=== PATIENT | female | born 1980 ===

== ENCOUNTER 2019-02-28 09:25 | Outpatient (CLI) | payer OTHER ==
--- NOTE | 2019-02-28 12:51 | Mammography Report ---
BILATERAL DIGITAL DIAGNOSTIC MAMMOGRAM WITH CAD -- 02/28/2019 LEFT LIMITED BREAST ULTRASOUND INDICATION: 2 palpable lumps of the left breast. TECHNIQUE: Digital bilateral mammographic imaging was performed. Spot compression views were obtaine d. Limited ultrasound was performed. This examination was interpreted with the benefit of Computer- ded Detection (CAD) analysis. COMPARISON: None. FINDINGS: Breast Density: The breasts are heterogeneously dense, which may obscure small masses. MAMMOGRAPHIC FINDINGS: A left inner asymmetry persists on spot compression. No architectural distorti on or suspicious calcifications of the left breast. There is no evidence of dominant mass, suspicious calcifications or architectural distortion in the right breast. ULTRASOUND FINDINGS: Targeted ultrasound evaluation was performed of the area of interest. Ultrasou nd of the left breast demonstrated a solid palpable heterogeneous hypoechoic mass at 10:00 5 cm from the nipple. It has a lobular shape and measures 1.9 x 1.0 x 1.9 cm. Ultrasound of the left breast dem onstrated a palpable solid heterogeneous hypoechoic mass at 2:00 7 cm from the nipple measuring 2.4 x 1.2 x 1.7 cm. It has an irregular shape. IMPRESSION: 2 solid left breast masses. Recommend ultrasound-guided needle core biopsy of the left br east at 2:00 and 10:00 to exclude malignancy. I discussed the findings and the recommendation for 2 ultrasound-guided needle biopsies of the left b reast with the patient at the time of the exam. Follow up recommendation: Biopsy BI-RADS Category 4: Suspicious for Malignancy. A "normal" or negative report should not discourage follow up or biopsy of a clinically significant f inding. A written summary of these findings will be mailed to the patient. The patient will be entered into a mammography reporting system which will generate a reminder letter for the patient's next appointmen t at the appropriate interval. According to the [employer], yearly mammograms are recommended starting at age 40 and continuing as long as a woman is in good health. Breast MRI is recommended for women with an alfreda roximately 20-25% or greater lifetime risk of breast cancer, including women with a strong family his tory of breast or ovarian cancer and women who have been treated for Hodgkin's disease. Signer Name: Remi Gutierrez MD Signed: 02/28/2019 12:47 PM Workstation Name: [id number]
== END 2019-02-28 09:26 | disposition home or self-care (01) ==
LOC: SPVWC 09:25
PROVIDERS: ATTEND Obstetrics & Gynecology
DX: N63.22 Unspecified lump in the left breast, upper inner quadrant (principal)
CPT/HCPCS: 77066

== ENCOUNTER 2019-03-21 10:02 | Outpatient (CLI) | payer OTHER ==
--- NOTE | 2019-03-21 11:29 | Mammography Report ---
LEFT DIGITAL DIAGNOSTIC MAMMOGRAM CLINICAL: For clip placement after ultrasound-guided needle biopsy 2 sites. COMPARISON: 02/28/2019 FINDINGS: Biopsy clips are now identified in the upper inner quadrant and the upper outer quadrant. IMPRESSION: Concordant clip deployment at 2 sites. Signer Name: Remi Gutierrez MD Signed: 03/21/2019 11:25 AM Workstation Name: [id number]
--- NOTE | 2019-03-21 13:12 | Ultrasound Report ---
ULTRASOUND-GUIDED NEEDLE CORE BIOPSY 2 SITES LEFT BREAST WITH CLIP PLACEMENT CLINICAL: Left breast masses at 2:00 and 10:00. COMPARISON: 02/28/2019 FINDINGS: The procedure was explained to the patient and informed consent was obtained. Ultrasound demonstrated the previously identified the previously described irregular solid heterogene ous hypoechoic masses.. I marked the breast with a felt tip marker and a timeout was called. The skin was prepped with Chloro -Prep and anesthetized with 1% lidocaine. Needle core biopsy was performed at 10:00 through a small dermatotomy using ultrasound guidance, 1% l idocaine for superficial anesthesia, 2% lidocaine with epinephrine for deep anesthesia and a 14-gauge Achieve biopsy device. 3 cores were obtained and placed in formalin. A clip was deployed within the mass. Needle core biopsy was performed at 2:00 through a small dermatotomy using ultrasound guidance, 1% li docaine for superficial anesthesia, 2% lidocaine with epinephrine for deep anesthesia and a 14-gauge achieve biopsy device. 4 cores were obtained and placed in formalin a clip was deployed within the ma ss. The patient tolerated the procedure well and there were no apparent complications. Hemostasis was ach ieved with minimal effort at both sites and sterile dressings were applied. A post procedure mammogram demonstrated concordant clip deployment at both sites. She left the [facility], operated by [facility] in good condition and was given instructions for wound care and follow-up. IMPRESSION: Uncomplicated ultrasound guided needle core biopsy with clip placement 2 sites left breas t. Signer Name: Remi Gutierrez MD Signed: 03/21/2019 1:08 PM Workstation Name: [id number]
--- NOTE | 2019-03-21 14:42 | Ultrasound Report ---
ULTRASOUND-GUIDED NEEDLE CORE BIOPSY 2 SITES LEFT BREAST WITH CLIP PLACEMENT CLINICAL: Left breast masses at 2:00 and 10:00. COMPARISON: 02/28/2019 FINDINGS: The procedure was explained to the patient and informed consent was obtained. Ultrasound demonstrated the previously identified the previously described irregular solid heterogene ous hypoechoic masses.. I marked the breast with a felt tip marker and a timeout was called. The skin was prepped with Chloro -Prep and anesthetized with 1% lidocaine. Needle core biopsy was performed at 10:00 through a small dermatotomy using ultrasound guidance, 1% l idocaine for superficial anesthesia, 2% lidocaine with epinephrine for deep anesthesia and a 14-gauge Achieve biopsy device. 3 cores were obtained and placed in formalin. A clip was deployed within the mass. Needle core biopsy was performed at 2:00 through a small dermatotomy using ultrasound guidance, 1% li docaine for superficial anesthesia, 2% lidocaine with epinephrine for deep anesthesia and a 14-gauge achieve biopsy device. 4 cores were obtained and placed in formalin a clip was deployed within the ma ss. The patient tolerated the procedure well and there were no apparent complications. Hemostasis was ach ieved with minimal effort at both sites and sterile dressings were applied. A post procedure mammogram demonstrated concordant clip deployment at both sites. [facility] in good condition and was given instructions for wound care and follow-up. IMPRESSION: Uncomplicated ultrasound guided needle core biopsy with clip placement 2 sites left breas t. Signer Name: Remi Gutierrez MD Signed: 03/21/2019 2:38 PM Workstation Name: [id number]
== END 2019-03-21 10:03 | disposition home or self-care (01) ==
LOC: SPVWC 10:02
PROVIDERS: ATTEND Obstetrics & Gynecology
DX: N63.21 Unspecified lump in the left breast, upper outer quadrant (principal); N63.22 Unspecified lump in the left breast, upper inner quadrant; D24.2 Benign neoplasm of left breast
CPT/HCPCS: 19083; 19084; 77065; 88305; A4648